=== PATIENT | female | born 1990 | race Caucasian/White ===

== ENCOUNTER 2019-03-22 11:42 | Emergency (ER) | payer OTHER, SELFPAY ==
--- NOTE | ~2019-03-22 | CT_ITS ---
EXAMINATION: CT abdomen pelvis w con INDICATION: Acute abdominal pain TECHNIQUE: Computed tomographic images of the abdomen and pelvis were obtained after the administrati on of 100 cc of Omnipaque 350 intravenous contrast. The dose-length product (DLP) was 197.82 mGy-cm. Automated exposure control and iterative reconstruction technique were employed. COMPARISON: None available FINDINGS: Motion artifact limits evaluation of the lung bases. The heart size is normal. The liver, s pleen, pancreas, gallbladder, and adrenal glands are normal. The kidneys are unremarkable. No patholo gically enlarged abdominal or pelvic lymph nodes are identified. There is no free intraperitoneal gas or evidence of bowel obstruction. The appendix is not definitely identified although no right lower quadrant inflammatory change is seen. There is a tiny fat-containing umbilical hernia. IMPRESSION: 1. No CT correlate for the patient's symptoms. Reviewed, dictated and finalized at location A. ASSISTANT
[2019-03-22 11:45] VITALS: BP 131/84; PULSE 120; RESP 18; TEMP 36.6; O2SAT 99
--- NOTE | 2019-03-22 11:54 | ED.ABDPAIN ---
HPI - Abdominal Pain General Chief Complaint: Abdominal Pain Stated Complaint: ABD PAIN Time Seen by Provider: 03/22/19 11:53 Source: patient Mode of arrival: ambulatory Limitations: no limitations History of Present Illness HPI narrative: Pt is a 28 y/o female who presents to the ED with c/o non-radiating, mid ABD cramps that she woke up with this morning. Pt started taking doxycycline on Thursday for an URI. She states that her stomach has been upset since she started taking the medicine but she has been eating before taking the medication. Pt states she drank a sprite that alleviated some of her pain. Her LNMP was 03/02/19. Pt denies N/V/D, constipation, vaginal bleeding, vaginal discharge, fever, chills, or urinary Sx. She has never been and she is a nonsmoker/nondrinker. MD elicited complaint: abdominal pain Location: diffuse Quality: cramping Radiation: none Exacerbating factors: medication (doxycycline) Relieving factors: other (sprite) Context: confirms recent antibiotic use Associated symptoms: denies other symptoms Related Data Allergies Allergy/AdvReac Type Severity Reaction Status Date / Time No Known Allergies Allergy Verified 03/22/19 11:48 Review of Systems Review of Systems: All systems reviewed & are unremarkable except as noted in HPI and below Constitutional: Constitutional: Denies chills and Denies fever(s) Gastrointestinal: Gastrointestinal: Denies constipation, Reports GI cramping (mid ABD), Denies diarrhea, Denies nausea and Denies vomiting Genitourinary: Genitourinary: Denies vaginal discharge and Denies other (vaginal bleeding, urinary Sx) PMFSH Past Medical History Medical History (Updated 03/22/19 @ 13:39 by Rodrigo Pepe MD) No significant past medical history Surgical History Surgical History (Updated 03/22/19 @ 13:13 by Cecilia Chirinos) No significant past surgical history Social History Social History (Updated 03/22/19 @ 13:13 by Cecilia Chirinos) Smoking status: Never smoker Alcohol intake: never Exam Narrative: Exam Narrative: General appearance: Well-developed, well-nourished Skin: Normal color Head: Normocephalic, nontraumatic Eyes: Clear conjunctiva ENT: Oropharynx normal, ears normal, nose normal Neck: Supple, nontender Chest and respiratory: Airway patent, no respiratory distress, no accessory muscle use Heart: Regular rate/rhythm Abdomen: Soft, mild diffuse tenderness, no organomegaly, quiet bowel sounds Vascular: Normal peripheral pulses, normal capillary refill. Musculoskeletal: Normal range of motion, nontender back Neurologic: Alert and oriented ?3, [employer] is normal as tested, no gross motor deficit Course Course Emergency Course: Improving Vital Signs Vital signs: Vital Signs Temperature 36.6 C 03/22/19 11:45 Pulse Rate 120 H 03/22/19 11:45 Respiratory Rate 18 03/22/19 11:45 Blood Pressure 131/84 03/22/19 11:45 Pulse Oximetry 99 03/22/19 11:45 Temperature 36.6 C 03/22/19 11:45 Pulse Rate 120 H 03/22/19 11:45 Respiratory Rate 18 03/22/19 11:45 Blood Pressure 131/84 03/22/19 11:45 Pulse Oximetry 99 03/22/19 11:45 MDM - Abdominal Pain MDM Narrative Medical decision making narrative: Diffuse abdominal pain, associated with no nausea, no vomiting, no fever or chills. Patient started on doxycycline recently which high likely the underlying cause. Labs, UA and CT abdomen and pelvis with IV contrast ordered. Further plan to follow Differential Diagnosis Differential diagnosis: Likely abdominal pain, constipation, endometriosis and pancreatitis Lab Data Result diagrams: 03/22/19 12:09 03/22/19 12:09 Lab
[2019-03-22 12:18] LABS: Basophils Percent Auto 0.5 % (0.2-1.2); Eosinophils Absolute Auto 0.1 K/mm3 (0-0.3); Eosinophils Percent Auto 0.8 % (0-4.4); Hematocrit 41.2 % (37.0-47.0); Hemoglobin 13.4 g/dL (12.0-15.0); Immature Granulocyte Absolute 0.02 K/mm3 (0.00-0.031); Immature Granulocyte Percent A 0.3 % (0-0.5); Immature Platelet Fraction Pct 8.4 % (0.9-11.2); Lymphocytes Percent Auto 25.8 % (18.3-44.2); Mean Corpuscular HGB Conc 32.5 g/dl (32-36); Mean Corpuscular Hemoglobin 27.7 pg (26-34); Mean Corpuscular Volume 85.3 fl (80-100); Mean Platelet Volume 13.4 fl (7.4-10.4); Monocytes Absolute Auto 0.3 K/mm3 (0.1-0.6); Monocytes Percent Auto 4.4 % (2.6-8.5); Neutrophils Absolute Auto 4.5 K/mm3 (1.3-6.7); Neutrophils Percent Auto 68.2 % (45.5-73.1); Platelet Count Result 170 k/mm3 (150-375); Red Blood Count 4.83 M/mm3 (4.2-5.4); Red Cell Distribution Width 13.1 % (11.5-14.5); White Blood Count 6.6 K/mm3 (4.5-10.0)
[2019-03-22 12:23] LABS: Add Urine Microscopic? YES; Appearance Urine Clear (Clear); Bacteria Urine Trace /hpf; Bilirubin Urine Negative (Negative); Blood Urine 1+ (Negative); Color Urine Colorless (Yellow); Glucose Urine UA Negative (Negative); Ketones Urine Negative (Negative); Leukocyte Esterase Ur Negative LEU/UL (Negative); Mucus Urine Rare /lpf; Nitrate Urine Negative (Negative); Protein Urine Negative (Negative); RBC Urine 0-2 /hpf (0-2); Squamous Epithelial Cell Urine Many /hpf (Few); Urobilinogen Urine Negative mg/dL (<2.0); WBC Urine 0-3 /hpf
[2019-03-22 12:25] LABS: Specific Grav Ur 1.004 (1.001-1.035)
[2019-03-22 12:28] LABS: Alanine Aminotransferase 19 U/L (4-35); Albumin Level 4.6 g/dL (3.5-5.1); Alkaline Phosphatase 78 U/L (38-126); Aspartate Amino Transferase 25 U/L (14-36); Bilirubin,Total 0.3 mg/dL (0.2-1.3); Blood Urea Nitrogen 6 mg/dL (7-17); Calcium 10.1 mg/dL (8.4-10.2); Carbon Dioxide 18 mmol/L (22-30); Chloride 102 mmol/L (98-107); Estimated CRCL calculation 74 ml/min; Estimated Glomerular Filt Rate > 60; Glucose 102 mg/dL (65-105); Lipase 92 U/L (23-300); Potassium 3.7 mmol/L (3.4-5.0); Sodium 135 mmol/L (137-145)
[2019-03-22] MEDS: ONDANSETRON INJ 4 MG/2 ML VIAL IV PUSH (12:41)
--- NOTE | 2019-03-22 12:47 | PC.NURSE ---
PT REFUSES MORPHINE, ASKING FOR SOMETHING NOT STRONG, ERP [facility]COL INFORMED, VERBAL ORDER FOR 1G IVP OFIRMEV.
[2019-03-22 14:23] VITALS: BP 118/75; PULSE 78; RESP 16; TEMP 36.6; O2SAT 100
== END 2019-03-22 14:15 | disposition home or self-care (01) ==
PROVIDERS: Emergency Provider Emergency Medicine
DX: R10.84 Generalized abdominal pain (principal)
CPT/HCPCS: 36415; 74177; 80053; 81001; 81025; 83690; 85025; 85055; 96374; 96375; 99284; J0131; J2405; Q9967